=== PATIENT | male | born 1985 | race Caucasian/White ===

== ENCOUNTER 2019-05-15 19:32 | Emergency (ER) | payer MEDICAID, OTHER ==
[~2019-05-15] VITALS: Ht 185.4 cm; Wt 65.9 kg
[~2019-05-15 19:32] MED LIST: LIDO20SO16 PO
[2019-05-15 19:34] VITALS: BP 142/88
--- NOTE | 2019-05-15 19:35 | NUR ---
Dr. Bradford notified of patient screening. No order for flu swab.
[2019-05-15] MEDS ORDERED: AZIT250T PO (20:54)
[2019-05-15] MEDS ORDERED: BENZ-16 PO (20:54)
== END 2019-05-15 21:00 | disposition home or self-care (01) ==
LOC: ER 19:35
DX: J06.9 Acute upper respiratory infection, unspecified (principal); Z60.2 Problems related to living alone; Z59.0 Homelessness; Z56.0 Unemployment, unspecified; Z79.2 Long term (current) use of antibiotics; Z79.899 Other long term (current) drug therapy
CPT/HCPCS: 99283